=== PATIENT | female | born 1960 ===

== ENCOUNTER 2018-03-13 08:37 | Emergency (ER) | payer OTHER ==
--- NOTE | 2018-03-13 09:27 | UC ---
Respiratory Complaint HPI - HPI Summary HPI Summary: Per locator: "c/o itchy throat, coughing, runny-itchy eyes for the past week. Denies fever" no ST. taking cold med. did not take HANNAH med today. cough is minimal. no wheezing. no cp/sob - History of Current Complaint Chief Complaint: UCRespiratory Stated Complaint: COUGH Time Seen by Provider: 03/13/18 09:14 Pain Intensity: 0 - Allergies/Home Medications Allergies/Adverse Reactions: Allergies Allergy/AdvReac Type Severity Reaction Status Date / Time No Known Allergies Allergy Verified 03/13/18 09:01 Home Medications: Home Medications Dm/Pseudoephed/Acetaminophen [Day-Time Multi-Symptom Co] 2 cap PO ONCE PRN 03/13 [History Confirmed 03/13/18] Insulin Glargine,Hum.rec.anlog [Basaglar Kwikpen U-100] 65 units INJ DAILY 03/13 [History Confirmed 03/13/18] Lisinopril 20 mg PO DAILY 03/13/18 [History Confirmed 03/13/18] Metformin HCl [Fortamet] 1,000 mg PO DAILY 03/13/18 [History Confirmed 03/13/18] glipiZIDE [Glipizide ER] 2.5 mg PO DAILY 03/13/18 [History Confirmed 03/13/18] PMH/Surg Hx/FS Hx/Imm Hx Cardiovascular History: Hypertension - Surgical History Surgical History: None - Social History Alcohol Use: None Substance Use Type: None Smoking Status (MU): Never Smoked Tobacco Review of Systems Constitutional: Negative Skin: Negative Eyes: Negative ENT: Other - throat itchy. + PND. no swelling in lips, tongue or throat. + nasal dc. Respiratory: Negative Cardiovascular: Negative Gastrointestinal: Negative Genitourinary: Negative Motor: Negative Neurovascular: Negative Musculoskeletal: Negative Neurological: Negative Psychological: Negative Is Patient Immunocompromised?: No All Other Systems Reviewed And Are Negative: Yes Physical Exam Triage Information Reviewed: Yes Appearance: Well-Appearing, No Pain Distress, Well-Nourished - very pleasant Vital Signs: Initial Vital Signs Temp 97.9 F 03/13/18 08:52 Pulse 83 03/13/18 08:52 Resp 16 03/13/18 08:52 BP 200/105 03/13/18 08:52 Pulse Ox 100 03/13/18 08:52 Vital Signs Reviewed: Yes Eye Exam: Normal ENT Exam: Normal ENT: Positive: Pharyngeal erythema - + PND< no exudate. uvula nml. mo swelling of lips, tongue., Nasal congestion, Nasal drainage, TMs normal, Uvula midline. Negative: Hoarse voice, Sinus tenderness Dental Exam: Normal Neck exam: Normal Neck: Positive: Supple, Nontender, No Lymphadenopathy Respiratory Exam: Normal Respiratory: Positive: Lungs clear, Normal breath sounds, No respiratory distress, No accessory muscle use. Negative: Crackles, Rhonchi, Stridor, Wheezing Cardiovascular Exam: Normal Cardiovascular: Positive: RRR, No Murmur, Pulses Normal Abdomen Description: Positive: Nontender, Soft Musculoskeletal Exam: Normal Neurological Exam: Normal Psychological Exam: Normal Skin Exam: Normal UC Diagnostic Evaluation - Laboratory O2 Sat by Pulse Oximetry: 100 Respiratory Course/Dx - Course Course Of Treatment: BP is elevated. she did not take BP med this AM. Taking otc dayquil cold adn flu that has phenylephrine in it. advised to avoid this cold med d/t BP elevation. -BP rpt 180/98 lt large. -recommend she take BP med daily and as soon as she gets home today. f/u with pcp Thursday for BP recheck - Differential Dx/Diagnosis Differential Diagnosis/HQI/PQRI: Bronchitis, Laryngitis, Other - allergies Provider Diagnoses: seasonal allergies Discharge - Sign-Out/Discharge Documenting (check all that apply): Patient Departure All imaging exams completed and their final reports reviewed: No Studies - Discharge Plan Condition: Stable Disposition: HOME Patient Education Materials: Allergic Rhinitis (ED) Referrals: Jose Manuel Jimenez MD [Primary Care Provider] - 3 Days Additional Instructions: Do not take any medicine with phenylephrine because it will raise yuor blood pressure. Take your blood pressure medicine as soon as you get home. Take OTC cetirizine 10mgs daily for the itchy throat and runny nose. - Billing Disposition and Condition Condition: STABLE Disposition: Home
== END 2018-03-13 09:42 | disposition home or self-care (01) ==
LOC: UCCORT 08:37
DX: J30.2 Other seasonal allergic rhinitis (principal); I10 Essential (primary) hypertension
CPT/HCPCS: 99201; G0463